=== PATIENT | female | born 2005 | race Caucasian/White ===

== ENCOUNTER 2023-04-09 18:38 | Emergency (ER) | payer SELFPAY ==
[2023-04-09] MEDS ORDERED: HYDROcodone/Acetaminophen 5/325 mg Tablet ONE (20:26)
[2023-04-09] MEDS ORDERED: Lidocaine 1% w/Epinephrine 1:200K 30 ML VIAL ONE (20:26)
== END 2023-04-09 22:32 | disposition home or self-care (01) ==
LOC: CSHERS 18:38
DX: L05.01 Pilonidal cyst with abscess (principal)
CPT/HCPCS: 10081

== ENCOUNTER 2023-04-12 15:11 | Emergency (ER) | payer SELFPAY | END 2023-04-12 16:28 | disposition home or self-care (01) | LOC: CSHERS 15:11 | DX: Z48.00 Encounter for change or removal of nonsurgical wound dressing (principal) | CPT/HCPCS: 99282 ==